=== PATIENT | female | born 1975 | race Caucasian/White ===

== ENCOUNTER 2016-08-30 19:47 | Emergency (ER) | payer MEDICAID, OTHER ==
[~2016-08-30] VITALS: Ht 167.6 cm; Wt 61.2 kg
[~2016-08-30 19:47] MED LIST: POTA10TA15 PO
[2016-08-30] MEDS ORDERED: OXYCODONE/APAP 5-325 MG TABLET PO ONE (20:30)
[2016-08-30] MEDS ORDERED: OXYCODONE/APAP 5-325 MG TABLET ONE (20:40)
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
--- NOTE | 2016-08-30 20:57 | NUR ---
Patient eloped from facility. ER physician notified.
== END 2016-08-30 20:59 | disposition left against medical advice (07) ==
LOC: ER 19:51
DX: T74.91XA Unspecified adult maltreatment, confirmed, initial encounter (principal); F15.10 Other stimulant abuse, uncomplicated; F10.20 Alcohol dependence, uncomplicated; F17.200 Nicotine dependence, unspecified, uncomplicated; I48.91 Unspecified atrial fibrillation
CPT/HCPCS: 99282; 99406; A4663